=== PATIENT | male | born 1965 | race Caucasian/White ===

== ENCOUNTER 2024-11-02 13:13 | Outpatient (AMB) | payer OTHER, SELFPAY ==
--- NOTE | 2024-11-02 13:14 | MHC.PC.OV ---
Vital Signs 11/02/24 13:20 Height 5 ft 10.47 in Weight 180 lb 6 oz BMI 25.5 BP 128/80 Blood Pressure Location Rt brachial Position Sitting Respiration 14 Pulse 58 Pulse Source Pulse Oximeter Temp 98.4 F Temp Source Oral Pulse Oximetry (%) 97 Oxygen Delivery Method Room Air Intake Visit Reasons: Est. Care Intake Note: New patient visit Truck Sales Representative Required: No Allergies No Known Allergies Allergy (Verified 11/02/24 13:17) Tobacco use date assessed: 11/02/24 Dental Screening Did you have a dental visit in the last 12 months?: Yes Did you have a dental problem in the last 6 months where you did not have access to dental care?: No Was dental information given to patient?: Patient has dentist HPI HPI Comments History of Present Illness Details 59 year old male with a past medical history of GERD presenting to [facility]. Transferring from Dr Oscar at [facility]. Previously followed with Dr Gardner. Father had esophageal cancer. Is on PPI daily. Follows with Dr Cano in [place]. Trabeculectomy Colonoscopy ~2 years ago. +shingrix ROS CONSTITUTIONAL: Denies weight loss, fever and chills. HEENT: Denies changes in vision and hearing. RESPIRATORY: Denies SOB and cough. CV: Denies palpitations and CP GI: Denies abdominal pain, nausea, vomiting and diarrhea. : Denies dysuria and urinary frequency. MSK: Denies new myalgia and joint pain. SKIN: Denies rash and pruritus. NEUROLOGICAL: Denies headache PSYCHIATRIC: Denies recent changes in mood. PHYSICAL EXAM: GENERAL: Alert and oriented x 3. NAD EYES: EOMI. Anicteric. HENT: Moist mucous membranes. No scleral icterus. No cervical lymphadenopathy. LUNGS: Clear to auscultation bilaterally. CARDIOVASCULAR: Regular rate and rhythm. No murmur. No JVD. ABDOMEN: Soft, non-tender +bs EXTREMITIES: No edema. Non-tender. SKIN: No rashes or lesions. Warm. NEUROLOGIC: No focal neurological deficits. CN II-XII grossly intact PSYCHIATRIC: Cooperative. Appropriate mood and affect [facility] Social History Housing: House Patient Tobacco Use Status: Never used Tobacco e-Cigarette/Vaping Use: Never Used service: No Current occupational status: employed Current occupation: [employer] Current occupational exposures/hazards: No Cognitive needs: No Hearing needs: No Vision needs: Yes (eye surgery last year. ) Questionnaire PHQ-9 Over the last 2 weeks, how often have you been bothered by any of the following problems? 1. Little interest or pleasure in doing things: not at all 2. Feeling down, depressed, or hopeless: not at all 3. Trouble falling or staying asleep, or sleeping too much: not at all 4. Feeling tired or having little energy: not at all 5. Poor appetite or overeating: not at all 6. Feeling bad about yourself - or that you are a failure or have let yourself or your family down: not at all 7. Trouble concentrating on things, such as reading the newspaper or watching television: not at all 8. Moving or speaking so slowly that other people could have noticed. Or the opposite - being so fidgety or restless that you have been moving around a lot more than usual: not at all 9. Thoughts that you would be better off or of hurting yourself in some way: not at all Total score: 0 Depression Screening Interpretation: Negative Depression Screening Done: Yes 58429 - PHQ-9 Billing: Yes Source: Developed by Drs. Nick Pollack, Saida Loaiza, Bruno Ingram and colleagues, with an educational miki from [employer]. Thrive Questionnaire Date Thrive assessed: 10/26/24 I am a: Patient What is your living situation today?: I have a steady place to live Within the past 12 months, did the food you bought not last and you didn't have the money to get more?: Never true Within the past 12 months, did you worry whether your food would run out before you got money to buy more?: Never true Do you have trouble paying for medicines?: No Do you have trouble getting transportation to medical appointments?: No Do you have trouble paying your heating and electricity bill?: No Do you have trouble taking care of your child, family member or friend?: No Do you have trouble with day-to-day activities such as bathing, preparing meals, shopping, managing finances, etc.?: No Are you currently unemployed and looking for a job?: No Are you interested in more education?: Yes Please select the resources that you would like help with: None Currently or been in a relationship where the following occur: No concerns reported THRIVE Score: 0 AUDIT C Alcohol Use Questionnaire (AUDIT-C) 1. How often do you have a drink containing alcohol?: Never 3. How often do you have six or more drinks on one occasion?: Never Total Score: 0 ALEJANDRO-7 AMB Questionnaire ALEJANDRO-7 Feeling nervous, anxious, or on edge: 0 = Not at all Not being able to stop or control worryin = Not at all Worrying too much about different things: 0 = Not at all Trouble relaxin = Not at all Being so restless that it is hard to sit still: 0 = Not at all Becoming easily annoyed or irritable: 0 = Not at all Feeling afraid as if something awful might happen: 0 = Not at all Total ALEJANDRO-7 score (0-4 normal; 5-9 mild; 10-14 moderate; 15-21 severe): 0 Source: Developed by Drs. Nick Pollack, Saida Loaiza, Bruno Ingram and colleagues, with an educational miki from [employer]. Physical exam (Primary Care) PHQ-9: PHQ-9 Score PHQ-9: Total score 0 11/02/24 13:16 Depression Screening Interpretation: Negative Thrive Assessment: Date of Thrive Assessment Date Thrive assessed 10/26/24 11/02/24 13:16 Currently or been in a relationship where the following occur: No concerns reported Coding Level of Care Code New Pt Level 3 (41298) Complex EM visit Add On G2211 Diagnoses Encounter to establish care Z76.89 Gastroesophageal reflux disease, unspecified whether esophagitis present K21.9 Esophagitis presence: esophagitis presence not specified Additional Codes PHQ-9 - 85521 - PHQ-9 Billing: Yes ([id number]) Assessment & Plan Assessment & Plan (1) Encounter to establish care: Code(s): Z76.89 - Persons encountering health services in other specified circumstances (2) GERD (gastroesophageal reflux disease): Code(s): K21.9 - Gastro-esophageal reflux disease without esophagitis Category: Medical Qualifiers: Esophagitis presence: esophagitis presence not specified Qualified Code(s): K21.9 - Gastro-esophageal reflux disease without esophagitis Plan 59 year old male to establish care Past medical, surgical, social, family history reviewed GERD-stable on pantoprazole Preventive measures utd for age. Waiting on immunization status-records pending Orders: Orders Complete Blood Count Auto Diff Today R63.1 - Polydipsia, Z13.0 - Encounter for screening for diseases of the blood and blood-forming organs and certain disorders involving the immune mechanism, Z13.220 - Encounter for screening for lipoid disorders, Z13.228 - Encounter for screening for other metabolic disorders, Z80.0 - Family history of malignant neoplasm of digestive organs Lipid Panel Today R63.1 - Polydipsia, Z13.0 - Encounter for screening for diseases of the blood and blood-forming organs and certain disorders involving the immune mechanism, Z13.220 - Encounter for screening for lipoid disorders, Z13.228 - Encounter for screening for other metabolic disorders, Z80.0 - Family history of malignant neoplasm of digestive organs Prostate Specific Antigen Today R63.1 - Polydipsia, Z13.0 - Encounter for screening for diseases of the blood and blood-forming organs and certain disorders involving the immune mechanism, Z13.220 - Encounter for screening for lipoid disorders, Z13.228 - Encounter for screening for other metabolic disorders, Z80.0 - Family history of malignant neoplasm of digestive organs Hemoglobin A1c Today R63.1 - Polydipsia Comprehensive Met. Panel Today R63.1 - Polydipsia, Z13.0 - Encounter for screening for diseases of the blood and blood-forming organs and certain disorders involving the immune mechanism, Z13.220 - Encounter for screening for lipoid disorders, Z13.228 - Encounter for screening for other metabolic disorders, Z80.0 - Family history of malignant neoplasm of digestive organs
[2024-11-02 13:20] VITALS: BP 128/80; PULSE 58; RESP 14; TEMP 36.9; O2SAT 97; BMI 25.5
--- OUTSIDE RECORDS SUMMARY | 2024-11-02 14:37 | XMS_ITS | Clinical Summary ---
Author Organization [facility] Address [address] [place] [address] Care Team Providers Care Home Care Associate Name Role Phone Unavailable Primary Care Provider Unavailabl e Immunizations Immunization Administration Dates Next Due DTP TD Preservative Free 07/20/2010, Tdap Social History Tobacco Use Types Packs/Day Years Used Date Smoking Tobacco: Never Assessed Sex and Gender Information Value Date Recorded Sex Assigned at Not on file Legal Sex Male 2:39 PM EDT Gender Identity Not on file Sexual Orientation Not on file Last Filed Vital Signs Vital Sign Reading Time Taken Comments Blood Pressure 114/88 10/21/2011 4:30 PM EDT Pulse 72 10/21/2011 4:30 PM EDT Temperature 36.3 C (97.3 F) 12/07/2010 9:02 AM EDT Respiratory Rate - - Oxygen Saturation - - Inhaled Oxygen Concentration - - Weight - - Height - - Body Mass Index - - Plan of Treatment Health Maintenance Due Date Last Done Comments Hepatitis C Virus Screening 1965 HIV Screening 1978 Hepatitis B Vaccines (1 of 3 - 19+ 3-dose series) 1984 DTaP/Tdap/Td Vaccines (1 - Tdap) 07/21/2010 07/20/2010, , , Additional history exists Pneumococcal Vaccines 50+ (1 of 1 - PCV) 08/07/2015 Zoster (Shingles) Vaccine (1 of 2) 08/07/2015 COVID-19 Vaccine ( - 2023-2 5 season) 2023
--- OUTSIDE RECORDS SUMMARY | 2024-11-02 14:37 | XMS_ITS | Clinical Summary ---
Author Organization [facility] Address [address] [place] [address] Phone Care Team Providers Care Director Of Education Name Role Phone Paulina Oscar MD Primary Care Provider [phone] Allergies Active Allergy Reactions Criticality Noted Date Comments Justicia Adhatoda 06/19/2023 Milk-Related Compounds 07/03/2017 Intolerance to dairy Peanut (Diagnostic) 12/10/2023 Tilactase 06/19/2023 Tomato 06/19/2023 Medications cetirizine (ZyrTEC) 10 MG tablet Take 10 mg by mouth in the morning. Active cholecalciferol (VITAMIN D-3) 25 MCG (1000 UT) capsule Take by mouth 8 Active dorzolamide (TRUSOPT) 2 % ophthalmic solution Administer 1 drop into affected eye(s) 3 Active dorzolamide-hazel olol (COSOPT) 2-0.5 % ophthalmic solution Administer 1 drop into affected eye(s) in the morning and 1 drop in the evening. 4 Active latanoprost (XALATAN) 0.005 % ophthalmic solution 1 drop Active Netarsudil-Maria noprost (Rocklatan) 0.02-0.005 % solution See Instructions, 0 Refills, Maintenance, 06/05/23 7:49:00 EST, Partial fill upon patient request if the prescription is for a schedule II opioid drug. 4 Active pantoprazole (PROTONIX) 40 MG EC tablet Take 40 mg by mouth 1 (one) time each day 4 Active olopatadine (PATANOL) 0.1 % ophthalmic solution Administer 1 drop into affected eye(s) 2 (two) times a day if needed Active ofloxacin (OCUFLOX) 0.3 % ophthalmic solution Administer 1 drop into affected eye(s) in the morning and 1 drop at noon and 1 drop in the evening. Active brimonidine (ALPHAGAN) 0.2 % ophthalmic solution PLACE 1 DROP INTO EACH EYE 3 TIMES A DAY. 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/2023 Overview (12/10/2023): H63D heterozygosity dx'ed 09/2014 Caregiver role strain 12/10/2023 Bereavement 12/10/2023 Allergy to walnut 12/10/2023 Allergic rhinitis 12/10/2023 Adverse reaction to food 12/10/2023 Gastroesophageal reflux disease 05/22/2016 Immunizations Immunization Administration Dates Next Due Influenza Whole 01/25/2019 Pfizer SARS-COV-2 04/24/2022,04/24/2021,09/06/19,08/15/2020 Shingrix 03/19/2023 TD Preservative Free 07/20/2010 Tdap 04/24/2022 Social History Tobacco Use Types Packs/Day Years Used Date Smoking Tobacco: Never Assessed Sex and Gender Information Value Date Recorded Sex Assigned at Not on file Legal Sex Male 11:36 AM EDT Gender Identity Not on file Sexual Orientation Not on file Last Filed Vital Signs Vital Sign Reading Time Taken Comments Blood Pressure 100/64 12/10/2023 11:41 AM EDT Pulse 60 12/10/2023 11:41 AM EDT Temperature - - Respiratory Rate - - Oxygen Saturation - - Inhaled Oxygen Concentration - - Weight 87.5 kg (193 lb) 12/10/2023 11:41 AM EDT Height - - Body Mass Index - - Plan of Treatment Health Maintenance Due Date Last Done Comments Hepatitis B Vaccine (1 of 3 - 19+ 3-dose series) 08/06 Pneumococcal Vaccine: 50+ Years (1 of 2 - PCV) 985 Colorectal Cancer Screening: Annual FOBT 2014 Colorectal Cancer Screening: Colonoscopy 2014 Colorectal Cancer Screening: Sigmoidoscopy 2014 Influenza Vaccine (#1) 2024 01/25/2019 Insurance [facility] Care Teams Director Of Education Relationship Specialty Start Date End Date Paulina Oscar MD [address] [place] [id number] (Work) PCP - General Internal Medicine 07/21/23
== END 2024-11-02 13:52 | disposition home or self-care (01) ==
LOC: HO.HMCFM 13:13
PROVIDERS: PCP Internal Medicine; Visit Provider Internal Medicine
DX: Z76.89 Persons encountering health services in other specified circumstances (principal); K21.9 Gastro-esophageal reflux disease without esophagitis

== ENCOUNTER → 2024-11-02 13:13 | Outpatient (BNVA) | payer OTHER, SELFPAY | PROVIDERS: PCP Internal Medicine; Visit Provider Internal Medicine | DX: Z76.89 Persons encountering health services in other specified circumstances (principal); K21.9 Gastro-esophageal reflux disease without esophagitis; Z13.31 Encounter for screening for depression | CPT/HCPCS: 96127 ==

== ENCOUNTER 2024-11-02 13:54 | Outpatient (REF) | payer OTHER, SELFPAY ==
[2024-11-02 17:58] LABS: MANUAL DIFF FLAG NO
[2024-11-02 18:03] LABS: Hematocrit 43.6 % (42.0-52.0); Hemoglobin 14.5 g/dl (14.0-18.0); Imm Gran Abs Auto 0.01 X10*3/uL (0.00-0.03); Imm Gran Pct Auto 0.2 % (0.0-0.4); Lymphocytes Absolute Auto 1.8 X10*3/uL (1.2-4.9); Mean Corpuscular HGB Conc 33.3 g/dl (31.0-36.0); Mean Corpuscular Hemoglobin 30.3 pg (27.0-33.0); Mean Corpuscular Volume 91.0 fL (80.0-98.0); NRBC Abs Auto 0.000 X10*3/uL (0.0-0.012); NRBC Pct Auto 0.0 /100WBC (0.0-0.2); Platelet Count 158 X10*3/uL (160-400); Red Blood Count 4.79 X10*6/uL (4.60-5.80); White Blood Count 4.1 X10*3/uL (4.8-10.8)
[2024-11-02 18:15] LABS: Alanine Aminotransferase 25 U/L (0-40); Albumin Level 4.2 g/dL (3.5-5.0); Alkaline Phosphatase 94 U/L (39-117); Anion Gap 11 (12-20); Aspartate Amino Transferase 33 U/L (5-37); Blood Urea Nitrogen 5 mg/dL (9-16); Calcium 8.7 mg/dL (8.4-10.2); Carbon Dioxide 28 mmol/L (22-29); Chloride 107 mmol/L (96-108); Cholesterol 126 mg/dL (<200); Estimated Glomerular Filt Rate > 60; HDL Cholesterol 40 mg/dL (>40); Potassium 4.1 mmol/L (3.3-5.1); Sodium 142 mmol/L (135-145); Total Protein 6.3 g/dL (6.5-8.0); Triglycerides 77 mg/dL (<150)
[2024-11-02 18:17] LABS: Hemoglobin A1C 135.2409 umol/L; Total Hemoglobin (HGBA1C) 3822.7765 umol/L
[2024-11-02 18:34] LABS: Prostate Specific Antigen 0.40 ng/mL (<0.05-4.0)
== END 2024-11-02 13:55 | disposition home or self-care (01) ==
LOC: HO.WFDLDS 13:54
PROVIDERS: Visit Provider Internal Medicine
DX: Z12.5 Encounter for screening for malignant neoplasm of prostate (principal); Z80.0 Family history of malignant neoplasm of digestive organs; Z13.228 Encounter for screening for other metabolic disorders; Z13.220 Encounter for screening for lipoid disorders; Z13.0 Encounter for screening for diseases of the blood and blood-forming organs and certain disorders involving the immune mechanism; R63.1 Polydipsia
CPT/HCPCS: 36415; 80053; 80061; 83036; 84153; 85025

== ENCOUNTER 2025-02-07 14:57 | Outpatient (AMB) | payer OTHER, SELFPAY ==
--- NOTE | 2025-02-07 15:07 | MHC.PC.OV ---
Vital Signs 02/07/25 15:15 Height 5 ft 10.47 in Weight 190 lb 4 oz BMI 26.9 BP 118/71 Blood Pressure Location Rt brachial Position Sitting Respiration 16 Pulse 59 Pulse Source Pulse Oximeter Temp 97.9 F Temp Source Oral Pulse Oximetry (%) 100 Oxygen Delivery Method Room Air Intake Visit Reasons: High blood pressure over the weekend Intake Note: patient here c/o having high blood pressure over the weekend Privacy Officer Required: No Allergies No Known Allergies Allergy (Verified 02/07/25 15:26) Medication List - Last Reconciled 02/07/25 by Tammy Garzon CNP brimonidine 0.2% 1 drp ophthalmic (eye) BID dorzolamide-timolol 22.3-6.8 mg/mL 1 drp ophthalmic (eye) BID latanoprost 0.005% 1 drp ophthalmic (eye) DAILY pantoprazole 40 mg PO DAILY Tobacco use date assessed: 02/07/25 Dental Screening Dental Screen Date: 02/07/25 Did you have a dental visit in the last 12 months?: No Did you have a dental problem in the last 6 months where you did not have access to dental care?: No Was dental information given to patient?: Patient has dentist HPI HPI Comments History of Present Illness Details 59-year-old male presents with complaints of elevated blood pressure readings over the past weekend. He reports work-related stressors. On , he felt unwell with heartburn and tightness to the middle of his chest. He checked his blood pressure while in a reclined position and he was 150/80s, but his systolic blood pressure improves to 120s. He denied associated headache, visual disturbances, or dizziness. He notes that he was eating salty foods, including chips, but started making healthy dietary choices over the weekend. He walks regularly during work. No acute symptoms at this time. He usually follows Dr. Doty. [facility] Social History Housing: House Patient Tobacco Use Status: Never used Tobacco e-Cigarette/Vaping Use: Never Used service: No Current occupational status: employed Current occupation: [employer] Current occupational exposures/hazards: No Cognitive needs: No Hearing needs: No Vision needs: Yes (eye surgery last year. ) Questionnaire Thrive Questionnaire Date Thrive assessed: 10/26/24 I am a: Patient What is your living situation today?: I have a steady place to live Within the past 12 months, did the food you bought not last and you didn't have the money to get more?: Never true Within the past 12 months, did you worry whether your food would run out before you got money to buy more?: Never true Do you have trouble paying for medicines?: No Do you have trouble getting transportation to medical appointments?: No Do you have trouble paying your heating and electricity bill?: No Do you have trouble taking care of your child, family member or friend?: No Do you have trouble with day-to-day activities such as bathing, preparing meals, shopping, managing finances, etc.?: No Are you currently unemployed and looking for a job?: No Are you interested in more education?: Yes Please select the resources that you would like help with: None Currently or been in a relationship where the following occur: No concerns reported THRIVE Score: 0 Review of Systems Const Details: Const Denies chills, Denies fatigue, Denies fever(s), Denies headache(s) and Denies weakness ENT Denies dizziness and Denies headache(s) Card Denies chest pain, Denies lightheadedness, Denies dyspnea and Denies other (Palpitations) Resp Denies cough, Denies dyspnea, Denies wheezing and Denies other ( shortness of breath) GI Denies abdominal pain, Denies melena, Denies hematochezia, Denies change in bowel habits, Denies dyspepsia and Denies nausea Denies hematuria and Denies dysuria Musc Denies abnormal gait, Denies myalgias, Denies arthralgias, Denies numbness and Denies tingling Skin/Breast Denies rash, Denies unusual bruising and Denies wounds Neuro Denies abnormal gait, Denies dizziness, Denies headache(s), Denies memory loss, Denies numbness, Denies Sensory deficit (Neuro), Denies tingling and Denies weakness Psych Denies anxiety, Denies depression, Denies memory loss Endo Denies cold intolerance, Denies fatigue, Denies heat intolerance, Denies polydipsia and Denies polyuria Aller/Immun Denies wheezing Physical exam (Primary Care) Vital Signs: Last Vital Signs Temp 97.9 F 02/07/25 15:15 Pulse 59 02/07/25 15:15 Resp 16 02/07/25 15:15 BP 118/71 02/07/25 15:15 Pulse Ox 100 02/07/25 15:15 Oxygen Delivery Method Room Air 02/07/25 15:15 BMI result Body Mass Index 26.9 Tobacco/Smoking Status: Tobacco use Status Tobacco use date assessed 02/07/25 02/07/25 15:15 Patient Tobacco Use Status Never used Tobacco 02/07/25 15:15 e-Cigarette/Vaping Use Never Used 02/07/25 15:15 Thrive Assessment: Date of Thrive Assessment Date Thrive assessed 10/26/24 02/07/25 15:15 Currently or been in a relationship where the following occur: No concerns reported Const Other: General: no acute distress and well developed Nutritional Appearance: well nourished Orientation/consciousness: patient oriented x3 HENMT Head: Yes normocephalic and Yes atraumatic Eyes General: appearance normal, both eyes and all related structures Pupils: Equal, round and reactive pupils present EOM: EOMs intact bilaterally Resp Effort & Inspection: normal respiratory effort Auscultation: clear to auscultation bilaterally Cardio Rate: regular rate Rhythm: regular rhythm Heart sounds: S1 normal heart sound present, S2 normal heart sound present, no gallops, no murmurs and no rubs GI Palpation (GI): No Abdominal aortic bruit present, Soft to palpation, nontender, No hepatosplenomegaly present and No Rebound tenderness present Auscultation: normal bowel sounds General: Yes no CVA tenderness Back/Spine/Pelvis Back: no CVA tenderness Cervical Spine: cervical ROM normal and No Cervical spine tenderness Thoracic/Lumbar Spine: thoraco-lumbar ROM normal, No pain with thoraco-lumbar ROM, No thoracic spinal tenderness and No lumbar spinal tenderness Extrem General: Yes normal to inspection, No edema and No calf tenderness Skin General: warm and dry. Normal skin color. Normal skin turgor Neuro General: patient oriented x3, gait normal and no focal neuro deficit Cranial nerves: Yes Equal, round and reactive pupils present Cognition (Neuro): normal cognition Gait exam (Neuro): Normal gait present Sensory Exam: No Sensory deficit (Neuro) Psych Appearance: grossly normal Affect: normal affect Attitude: cooperative Thought process: Normal thought process present Coding Level of Care Code Est Pt Level 3 (88197) Diagnoses Elevated blood pressure reading R03.0 Assessment & Plan Assessment & Plan (1) Elevated blood pressure reading: Code(s): R03.0 - Elevated blood-pressure reading, without diagnosis of hypertension Category: Medical Plan: Blood pressure is 118/71. Low-sodium diet and routine exercise encouraged. Follow-up with PCP. Verbalized understanding and agreed with the plan.
[2025-02-07 15:15] VITALS: BP 118/71; PULSE 59; RESP 16; TEMP 36.6; O2SAT 100; BMI 26.9
--- OUTSIDE RECORDS SUMMARY | 2025-02-07 19:10 | XMS_ITS | Encounter Summary ---
Author Organization [facility] Address [address] [place] [phone] Phone Care Team Providers Care Associate Engineer Name Role Phone Paulina Oscar MD Primary Care Provide r Encounter Details Date Type Department Care Team (Late st Contact Info) Description 08/05/2023 Procedure Pass [facility] PERIOP DEPT [address] [place] [address] Social History Tobacco Use Types Packs/Day Years Used Date Smoking Tobacco: Never Smokeless Tobacco: Never Alcohol Use Standard Drinks/Week Comments Never 0 (1 standard drink = 0.6 oz pur e alcohol) Education Answer Date Recorded Are you interested in more education? Not on lesley e 05/30/2023 Are you concerned about learning? Not on file 05/30/2023 No 05/30/2023 No 05/30/2023 Digital Access Answer Date Recorded No 05/30/2023 No 05/30/2023 Reliable internet access at home? Not on file 05/30/2023 Device with a working camera? Not on file Intimate Partner Violence Answer Date R ecorded Are you denied basic needs s uch as food, clothing, or medical care? No 08/05/2023 In the past 12 months have y ou been in a relationship with a person who hurts, threatens, or tries to control you? No 08/05/2023 Are you denied basic needs s uch as food, clothing, or medical care? No 08/05/2023 In the past 12 months have y ou been in a relationship with a person who hurts, threatens, or tries to control you? No 08/05/2023 Sex and Gender Information Value Date Recorded Sex Assigned at Not on file Legal Sex Male 12:10 PM EST Gender Identity Not on file Sexual Orientation Not on file documented as of this encounter Plan of Treatment Not on file documented as of this encounter Visit Diagnoses Not on filedocumented in this encounter Care Teams Associate Engineer Relationship Specialty Start Date End Date Paulina Oscar MD [address] [address] PCP - General Internal Medicine 06/19/23 documented as of this encounter Additional Source Comments The information contained in this document represents components of the legal health record. It is not the complete legal health record.[facility]
--- OUTSIDE RECORDS SUMMARY | 2025-02-07 19:10 | XMS_ITS | Clinical Summary ---
Author Organization [facility] Address [address] [place] [address] Care Team Providers Care Mica Spreader Name Role Phone Unavailable Primary Care Provider [...] COVID-19 Vaccine ( - 2023-2 5 season) 2024 RSV Vaccine 50 years and old er and Patients (1 - 1-dose 75+ series) 2040
--- OUTSIDE RECORDS SUMMARY | 2025-02-07 19:10 | XMS_ITS | Encounter Summary ---
Author Organization [facility] Address [address] [place] [address] Phone Care Team Providers Care Aluminum Pool Installer Name Role Phone Pcp, Not Required Primary Care Provider Paulina Adams MD Primary Care Provide r Encounter Details Date Type Department Care Team ([facility] st Contact Info) Description 05/30/2023 Ophth Exam [facility] [place] [address] [place] [address] Petr Mandel MD [address] [place] [address] [email or web address] Social History Tobacco Use Types Packs/Day Years [...] with a working camera? Not on file Sex and Gender Information Value Date Recorded Sex Assigned at Not on file Legal Sex Male 12:10 PM EST Gender Identity Not on file Sexual Orientation Not on file documented as of this encounter Functional Status * Calculated C-SSRS Risk Score (Lifetime/Recent) Answer Date of Assessment Author No Risk Indicated 05/30/2023 12:42 PM Olivia Alaniz RN * Mousie Suicide Severity Rating Scale (Screener/Recent Self-Report) Question Answer Date of Assessment Author 1. Wish to be (Past 1 Month) No 024 12:42 PM Olivia Alaniz RN 2. Non-Specific Active Suici shahrzad Thoughts (Past 1 Month) No 05/30/2023 12:42 PM Terry Alaniz RN 6. Suicidal Behavior (Lifetime) No 4 12:42 PM Olivia Alaniz RN documented as of this encounter Plan of Treatment Not on file documented as of this encounter Visit Diagnoses Not on filedocumented in this encounter Care Teams Aluminum Pool Installer Relationship Specialty Start Date End Date Pcp, Not Required [address] [place] [address] PCP - General 05/30/23 06/18/23 Paulina Oscar MD [address] [address] PCP - General Internal Medicine 06/19/23 documented as of this encounter Additional Source Comments The information contained in this document represents components of the legal health record. It is not the complete legal health record.[facility]
--- OUTSIDE RECORDS SUMMARY | 2025-02-07 19:10 | XMS_ITS | Encounter Summary ---
Author Organization [facility] Address [address] [place] [address] Phone Care Team Providers Care Legal Support Manager Name Role Phone Paulina Oscar MD Primary Care Provide r Encounter Details Date Type Department Care Team ([facility] st Contact Info) Description 06/25/2023 Procedure Pass MARIANGEL LW PERIOP DEPT [address] [place] [address] Social History Tobacco Use Types Packs/Day Years [...] on filedocumented in this encounter Care Teams Legal Support Manager Relationship Specialty Start Date End Date Paulina Oscar MD [address] [address] PCP - General Internal Medicine 06/19/23 documented as of this encounter Additional Source Comments The information contained in this document represents components of the legal health record. It is not the complete legal health record.[facility]
--- OUTSIDE RECORDS SUMMARY | 2025-02-07 19:10 | XMS_ITS | Clinical Summary ---
Author Organization [facility] Address [address] [place], [place] [id number] Phone Care Team Providers Care Caustic Plant Worker Name Role Phone Paulina Oscar MD Primary Care Provide r Allergies Active Allergy Reactions Criticality Noted Date Comments Lactase 06/19/2023 Milk Containing Products (Dairy) 07/03/2017 Intolerance to dairy Tomato 06/19/2023 Tree Nut 06/19/2023 Medications brimonidine (LUMIFY) 0.025 % opthalmic solution Apply 1 drop to eye. 3 Active dorzolamide (TRUSOPT) 2 % ophthalmic solution Apply 1 drop to eye. 3 Active pantoprazole (PROTONIX) 40 MG tablet Take 1 tablet by mouth daily. 2 Active cholecalciferol , vitamin D3, 25 mcg (1,000 unit) capsule Take 1,000 Units by mouth daily. Active cyanocobalamin, vitamin B-12, 1000 MCG tablet Take 1,000 mcg by mouth daily. 3 days a week Active cetirizine (ZYRTEC) 10 MG tablet Take 10 mg by mouth daily. Active ofloxacin (OCUFLOX) 0.3 % ophthalmic solutionIndicat ions:Primary open angle glaucoma of right eye, severe stage Place 1 drop into the right eye 3 (three) times a day. 5 mL 1 4 Active olopatadine (PATANOL) 0.1 % ophthalmic solution Place 1 drop into the left eye 2 (two) times a day as needed. Active prednisoLONE acetate (PRED FORTE) 1 % ophthalmic suspensionIndic ations:Primary open angle glaucoma of right eye, severe stage Place 2 drops into the right eye daily. 10 mL 1 4 Active Additional Information Patient not taking.Reported on 08/28/2023 brimonidine (ALPHAGAN) 0.2 % ophthalmic solution Place 1 drop into the left eye 2 (two) times a day. 10 mL 12 5 Active dorzolamide-hazel oloL (COSOPT) 22.3-6.8 mg/mL ophthalmic solution Place 1 drop into the left eye 2 (two) times a day. 10 mL 12 5 Active latanoprost (XALATAN) 0.005 % ophthalmic solution Place 1 drop into the left eye nightly at bedtime. 2.5 mL 12 5 Active Encounters Date Type Department Care Team Description 02/03/[address] [place] [address] Geoffrey Schmid from Last 3 Months Social History Tobacco Use Types Packs/Day Years Used Date Smoking Tobacco: Never Smokeless Tobacco: Never Tobacco Cessation:Counseling Given: Not Answered Alcohol Use Standard Drinks/Week Comments Never 0 [...] ecorded Are you denied basic needs [facility] as food, clothing, or medical care? No 08/05/2023 In the past 12 months have y ou been in a relationship with a person who hurts, threatens, or tries to control you? No 08/05/2023 Are you denied basic needs [facility] as food, clothing, or medical care? No [...] Sign Reading Time Taken Comments Blood Pressure 139/96 08/05/2023 2:30 PM EDT Pulse 82 08/05/2023 2:30 PM EDT Temperature 36.4 C (97.6 F) 08/05/2023 2:11 PM EDT Respiratory Rate 17 08/05/2023 2:11 PM EDT Oxygen Saturation 98% 08/05/2023 2:11 PM EDT Inhaled Oxygen Concentration - - Weight 81.6 kg (180 lb) 08/05/2023 12:47 PM EDT Height 180.3 cm (5' 10.98 ) 08/05/2023 12:47 PM EDT Body Mass Index 25.12 08/05/2023 12:47 PM EDT Plan of Treatment Health Maintenance Due Date Last Done Comments LIPID PANEL 1965 DEPRESSION SCREENING 1977 HEPATITIS C SCREENING 08/07/1983 HIV ONE-TIME SCREENING (18-6 5 YEARS) 08/07/1983 SCREENING FOR DIABETES 2000 COLOGUARD 2010 COLONOSCOPY 2010 COLORECTAL CANCER SCREENING 2010 FIT TEST 2010 FOBT 2010 SIGMOIDOSCOPY 2010 VIRTUAL COLONOSCOPY 2010 PNEUMOCOCCAL VACCINES (50+ years) (1 of 1 - PCV) 08/07/2015 ZOSTER VACCINES (1 of 2) 08/07/2015 INFLUENZA VACCINE (#1) 2024 COVID-19 VACCINE ( - 2024-2 6 season) 2024 Adult Td,Tdap Booster 04/24/2032 04/24/2022 , RSV VACCINE (1 - 1-dose 75+ series) 2040 SMOKING STATUS SCREENING (On ce After 26 Yrs) Completed 08/28/2023 HEPATITIS A VACCINES Aged Out No long er eligible based on patient's age to complete this topic HIB VACCINES Aged Out No longer eligi ble based on patient's age to complete this topic MENINGOCOCCAL VACCINES (ACWY) Aged Out No longer eligible based on patient's age to complete this topic MENINGOCOCCAL VACCINES (B) Aged Out N o longer eligible based on patient's age to complete this topic Medical Devices Not on [place] [phone] PLAN [facility] CARE [place] [address] [place] [address] CARE PLAN ADIEL DOMINGUEZ [id number] Advance Directives For more information, please contact: [phone] (9AM - 5PM [place], Friday-Friday) Documents on File Type Date Recorded Patient Tree Farmer Expl anation Healthcare Proxy 06/27/2023 10:02 AM Care Teams Caustic Plant Worker Relationship Specialty Start Date End Date Paulina Oscar MD [address] [address] PCP - General Internal Medicine 06/19/23 Additional Source Comments The information contained in this document represents components of the legal health record. It is not the complete legal health record.[facility]
--- OUTSIDE RECORDS SUMMARY | 2025-02-07 19:10 | XMS_ITS | Encounter Summary ---
Author Organization [facility] Address [address] [place] [address] [place] [address] Phone Care Team Providers Care Recruitment Officer Name Role Phone Paulina Oscar MD Primary Care Provide r Encounter Details Date Type Department Care Team (Late st Contact Info) Description 02/03/[address] [address] Geoffrey [email or web address] Social History Tobacco Use Types Packs/Day Years [...] on filedocumented in this encounter Care Teams Recruitment Officer Relationship Specialty Start Date End Date Paulina Oscar MD [address] [address] PCP - General Internal Medicine 06/19/23 documented as of this encounter Additional Source Comments The information contained in this document represents components of the legal health record. It is not the complete legal health record.[facility]
--- OUTSIDE RECORDS SUMMARY | 2025-02-07 19:10 | XMS_ITS | Clinical Summary ---
Author Organization [facility] Address [address] [place] [place] [address] Phone Care Team Providers Care Enrollment Nurse Name Role Phone Paulina Oscar MD Primary Care Provider [phone] Allergies Active Allergy Reactions Criticality Noted Date [...] [facility] Care Teams Enrollment Nurse Relationship Specialty Start Date End Date Paulina Oscar MD [address] [place] [phone] (Work) PCP - General Internal Medicine 07/21/23
== END 2025-02-07 15:36 | disposition home or self-care (01) ==
LOC: HO.HMCFM 14:58
PROVIDERS: PCP Internal Medicine; Visit Provider Nurse Practitioner Family
DX: R03.0 Elevated blood-pressure reading, without diagnosis of hypertension (principal)

== ENCOUNTER 2025-03-11 14:00 | Outpatient (AMB) | payer OTHER, SELFPAY ==
--- NOTE | 2025-03-11 14:14 | MHC.PC.OV ---
Vital Signs 03/11/25 14:16 Height 5 ft 10.47 in Weight 192 lb 8 oz BMI 27.3 BP 108/66 Blood Pressure Location Lt brachial Position Sitting Respiration 14 Pulse 79 Pulse Source Pulse Oximeter Temp 97.9 F Temp Source Oral Pulse Oximetry (%) 100 Oxygen Delivery Method Room Air Intake Visit Reasons: BP Intake Note: Blood pressure follow. Public Speaking Instructor Required: No Allergies No Known Allergies Allergy (Verified 03/11/25 14:15) Tobacco use date assessed: 03/11/25 Dental Screening Dental Screen Date: 02/07/25 HPI HPI Comments History of Present Illness Details 59 year old male with a past medical history of GERD presenting for follow up Previously followed with Dr Gardner. Father had esophageal cancer. Is on PPI daily. Recent heartburn, reflux Seen recently by colleague He had an episodes of He reports work-related stressors. On , he felt unwell with heartburn and tightness to the middle of his chest. He checked his blood pressure while in a reclined position and he was 150/80s, but his systolic blood pressure improves to 120s. He denied associated headache, visual disturbances, or dizziness. He notes that he was eating salty foods, including chips, but started making healthy dietary choices over the weekend. He walks regularly during work. He has not had any interval episodes. Blood pressure has been good. He is having daytime fatigue and thinks he has been snoring. He was supposed to have sleep testing in the past Follows with Dr Cano in [place]. Trabeculectomy Colonoscopy ~2 years ago. +shingrix ROS CONSTITUTIONAL: Denies weight loss, fever and chills. HEENT: Denies changes in vision and hearing. RESPIRATORY: Denies SOB and cough. CV: Denies palpitations and CP GI: Denies abdominal pain, nausea, vomiting and diarrhea. : Denies dysuria and urinary frequency. MSK: Denies new myalgia and joint pain. SKIN: Denies rash and pruritus. NEUROLOGICAL: Denies headache PSYCHIATRIC: Denies recent changes in mood. PHYSICAL EXAM: GENERAL: Alert and oriented x 3. NAD EYES: EOMI. Anicteric. HENT: Moist mucous membranes. No scleral icterus. No cervical lymphadenopathy. LUNGS: Clear to auscultation bilaterally. CARDIOVASCULAR: Regular rate and rhythm. No JVD. ABDOMEN: Soft, non-tender +bs EXTREMITIES: No edema. Non-tender. SKIN: No rashes or lesions. Warm. NEUROLOGIC: No focal neurological deficits. CN II-XII grossly intact PSYCHIATRIC: Cooperative. Appropriate mood and affect [facility] Social History Housing: House Patient Tobacco Use Status: Never used Tobacco e-Cigarette/Vaping Use: Never Used service: No Current occupational status: employed Current occupation: [employer] Current occupational exposures/hazards: No Cognitive needs: No Hearing needs: No Vision needs: Yes (eye surgery last year. ) Questionnaire Thrive Questionnaire Date Thrive assessed: 10/26/24 I am a: Patient What is your living situation today?: I have a steady place to live Within the past 12 months, did the food you bought not last and you didn't have the money to get more?: Never true Within the past 12 months, did you worry whether your food would run out before you got money to buy more?: Never true Do you have trouble paying for medicines?: No Do you have trouble getting transportation to medical appointments?: No Do you have trouble paying your heating and electricity bill?: No Do you have trouble taking care of your child, family member or friend?: No Do you have trouble with day-to-day activities such as bathing, preparing meals, shopping, managing finances, etc.?: No Are you currently unemployed and looking for a job?: No Are you interested in more education?: Yes Please select the resources that you would like help with: None Currently or been in a relationship where the following occur: No concerns reported THRIVE Score: 0 AUDIT C Alcohol Use Questionnaire (AUDIT-C) 1. How often do you have a drink containing alcohol?: Never 3. How often do you have six or more drinks on one occasion?: Never Total Score: 0 Physical exam (Primary Care) Vital Signs: Last Vital Signs Temp 97.9 F 03/11/25 14:16 Pulse 79 03/11/25 14:16 Resp 14 03/11/25 14:16 BP 108/66 03/11/25 14:16 Pulse Ox 100 03/11/25 14:16 Oxygen Delivery Method Room Air 03/11/25 14:16 BMI result Body Mass Index 27.3 Tobacco/Smoking Status: Tobacco use Status Tobacco use date assessed 03/11/25 03/11/25 14:19 Patient Tobacco Use Status Never used Tobacco 03/11/25 14:19 e-Cigarette/Vaping Use Never Used 03/11/25 14:19 Thrive Assessment: Date of Thrive Assessment Date Thrive assessed 10/26/24 03/11/25 14:19 Currently or been in a relationship where the following occur: No concerns reported Coding Level of Care Code Complex visit Add On G2211 Diagnoses Gastroesophageal reflux disease, unspecified whether esophagitis present K21.9 Esophagitis presence: esophagitis presence not specified Daytime somnolence R40.0 Assessment & Plan Assessment & Plan (1) GERD (gastroesophageal reflux disease): Code(s): K21.9 - Gastro-esophageal reflux disease without esophagitis Category: Medical Qualifiers: Esophagitis presence: esophagitis presence not specified Qualified Code(s): K21.9 - Gastro-esophageal reflux disease without esophagitis (2) Daytime somnolence: Code(s): R40.0 - Somnolence Category: Medical Plan 59 year old presenting for follow up No interval chest pain. Recent episode more likely GI related. EKG normal Daytime fatigue, snoring -sleep study ordered Orders: Orders AMB EKG-In Office 03/11/25 K21.9 - Gastro-esophageal reflux disease without esophagitis, R07.9 - Chest pain, unspecified RT home sleep study 03/11/25 R06.83 - Snoring, R40.0 - Somnolence Complete Blood Count Auto Diff 03/11/25 D72.818 - Other decreased white blood cell count Pathologist Review - CBC 03/11/25 D72.818 - Other decreased white blood cell count
[2025-03-11 14:16] VITALS: BP 108/66; PULSE 79; RESP 14; TEMP 36.6; O2SAT 100; BMI 27.3
--- OUTSIDE RECORDS SUMMARY | 2025-03-11 14:25 | XMS_ITS | Encounter Summary ---
Author Organization [facility] Address [address] [place] [address] [place] [address] Phone Care Team Providers Care Gas Cutting Machine Operator Name Role Phone Paulina Oscar MD Primary Care Provide r Encounter Details Date Type Department Care Team (Late st Contact Info) Description 02/03/[address] [address] Geoffrey [email or web address] Social History Tobacco Use Types Packs/Day Years [...] as of this encounter Plan of Treatment Upcoming Encounters Date Type Department Care Team (Late st Contact Info) Description 08/18/2025 1:30 PM EDT Appointment [facility] [place] [address] [address] Edinson Cano MD [address] [place] [phone] [email or web address] 08/18/2025 2:00 PM EDT Office Visit [address] [address] Edinson Cano MD [address] [place] [address] [email or web address] documented as of this encounter Visit Diagnoses Not on filedocumented in this encounter Care Teams Gas Cutting Machine Operator Relationship Specialty Start Date End Date Paulina Oscar MD [address] [place] [address] PCP - General Internal Medicine 06/19/23 documented as of this encounter Additional Source Comments The information contained in this document represents components of the legal health record. It is not the complete legal health record.[facility]
--- OUTSIDE RECORDS SUMMARY | 2025-03-11 14:25 | XMS_ITS | Encounter Summary ---
Author Organization [facility] Address [address] [place] [address] [place] [address] Phone Care Team Providers Care Process Chemist Name Role Phone Paulina Oscar MD Primary Care Provide r Encounter Details Date Type Department Care Team (Late st Contact Info) Description 02/10/[address] [address] Geoffrey [email or web address] Social History Tobacco Use Types Packs/Day Years [...] on file documented as of this encounter Progress Notes * Geoffrey Schmid - 02/10/2025 9:53 AM EDT called and lvm to schedule appointment for february with documented in this encounter Plan of Treatment Upcoming Encounters Date Type Department Care Team (Late st Contact Info) Description 08/18/2025 1:30 PM EDT Appointment [facility] [place] [address] [address] Edinson Cano MD [address] [place] [address] [email or web address] 08/18/2025 2:00 PM EDT Office Visit [facility] [address] [address] Edinsno Cano MD [address] [place] [address] [email or web address] documented as of this encounter Visit Diagnoses Not on filedocumented in this encounter Care Teams Process Chemist Relationship Specialty Start Date End Date Paulina Oscar MD [address] [place] [address] PCP - General Internal Medicine 06/19/23 documented as of this encounter Additional Source Comments The information contained in this document represents components of the legal health record. It is not the complete legal health record.[facility]
--- OUTSIDE RECORDS SUMMARY | 2025-03-11 14:25 | XMS_ITS | Encounter Summary ---
Author Organization [facility] Address [address] [place] [address] Phone Care Team Providers Care Sheet Metal Journeyman Name Role Phone Paulina Oscar MD Primary Care Provide r Encounter Details Date Type Department Care Team (Late st Contact Info) Description 06/25/2023 Procedure Pass MARIANGEL LW PERIOP DEPT [address] [place] [address] Social History Tobacco Use Types Packs/Day Years [...] Info) Description 08/18/2025 1:30 PM EDT Appointment [facility] [address] [facility] 1st [place] [address] Edinson Cano MD [address] [place] [address] [email or web address] 08/18/2025 2:00 PM EDT Office Visit [facility] [address] [place] [address] Edinson Cano MD [address] [place] [address] [email or web address] documented as of this encounter Visit Diagnoses Not on filedocumented in this encounter Care Teams Sheet Metal Journeyman Relationship Specialty Start Date End Date Paulina Oscar MD [address] [address] PCP - General Internal Medicine 06/19/23 documented as of this encounter Additional Source Comments The information contained in this document represents components of the legal health record. It is not the complete legal health record.[facility]
--- OUTSIDE RECORDS SUMMARY | 2025-03-11 14:25 | XMS_ITS | Encounter Summary ---
Author Organization [facility] Address [address] [place] [address] Care Team Providers Care Lathe Tender Name Role Phone Paulina Oscar MD Primary Care Provider [phone] Encounter Details Date Type Department Care Team (Late st Contact Info) Description 11/24/2024 Lab Requisition [facility] - Main Lab [address] [facility] [place] [address] Feliz Marroquin MD [address] [facility] [address] [place] [phone] Benign prostatic hyperplasia without lower urinary tract symptoms Social History Tobacco Use Types Packs/Day Years Used Date Smoking Tobacco: Never Smokeless Tobacco: Never Alcohol Use Standard Drinks/Week Comments No 0 (1 standard drink = 0.6 oz pur e alcohol) Sex and Gender Information Value Date Recorded Sex Assigned at Not on file Legal Sex Male 5:30 AM EST Gender Identity Not on file Sexual Orientation Not on file documented as of this encounter Plan of Treatment Not on file documented as of this encounter Procedures Procedure Name Priority Date/Time Associated Diagnosis Comments PROSTATE SPECIFIC ANTIGEN DIAGNOSTIC Routine 11/24/2024 10:58 AM EDT Benign prostatic hyperplasia without lower urinary tract symptoms documented in this encounter Results * Prostate specific antigen diagnostic (11/24/2024 10:58 AM EDT) PSA 0.47 0.00 - 4.00 ng/mL LAB CHEMISTRY METHOD 11/24/2024 3:06 PM EDT [facility] Blood Venous blood specimen / Unknown 11/24/2024 10:58 AM EDT 11/24/2024 1:35 PM EDT Narrative [facility] ([facility] - 11/24/2024 3:06 PM EDT The Siemens Advia Centaur Chemiluminescent Immunoassay is used. Results obtained with different assay methods or kits cannot be used interchangeably. Results cannot be interpreted as absolute evidence of the presence or absence of malignant disease. us Feliz Marroquin MD LAB BLOOD ORDERABLES Final Resul t [facility] [address] [place] [address], documented in this encounter Visit Diagnoses Diagnosis Benign prostatic hyperplasia without lower urinary tract symptoms documented in this encounter Care Teams Lathe Tender Relationship Specialty Start Date End Date Paulina Oscar MD PCP - General Internal Medicine 05/07/16 documented as of this encounter
--- OUTSIDE RECORDS SUMMARY | 2025-03-11 14:25 | XMS_ITS | Clinical Summary ---
Author Organization [facility] Address [address] [place] [place] [address] Phone Care Team Providers Care Lining Mechanic Name Role Phone Paulina Oscar MD Primary Care Provider Allergies Active Allergy Reactions Criticality Noted Date [...] 2014 Influenza Vaccine (#1) 2024 01/25/2019 Insurance [facility] Care Teams Lining Mechanic Relationship Specialty Start Date End Date Paulina Oscar MD [address] [place] [phone] (Work) PCP - General Internal Medicine 07/21/23
--- OUTSIDE RECORDS SUMMARY | 2025-03-11 14:25 | XMS_ITS | Clinical Summary ---
Author Organization [facility] Address [address] [place] [address] Care Team Providers Care Sub Master Name Role Phone Unavailable Primary Care Provider [...]
--- OUTSIDE RECORDS SUMMARY | 2025-03-11 14:25 | XMS_ITS | Clinical Summary ---
Author Organization [facility] Address [address] [place] [phone] Phone Care Team Providers Care Watch Assembly Instructor Name Role Phone Paulina Osacr MD Primary Care Provide r Allergies Active Allergy Reactions Criticality Noted Date Comments Lactase 06/19/2023 Milk Containing Products (Dairy) 07/03/2017 Intolerance to dairy Tomato 06/19/2023 Tree Nut 06/19/2023 Medications pantoprazole (PROTONIX) 40 MG tablet Take 1 tablet by mouth daily. 2 Active cholecalcifero l, vitamin D3, 25 mcg (1,000 unit) capsule Take 1,000 Units by mouth daily. Active cyanocobalamin , vitamin B-12, 1000 MCG tablet Take 1,000 mcg by mouth daily. 3 days a week Active cetirizine (ZYRTEC) 10 MG tablet Take 10 mg by mouth daily. Active brimonidine (ALPHAGAN) 0.2 % ophthalmic solution Place 1 drop into the left eye 2 (two) times a day. 10 mL 12 5 Active dorzolamide-ti moloL (COSOPT) 22.3-6.8 mg/mL ophthalmic solution Place 1 drop into the left eye 2 (two) times a day. 10 mL 12 5 Active latanoprost (XALATAN) 0.005 % ophthalmic solution Place 1 drop into the left eye nightly at bedtime. 2.5 mL 12 5 Active brimonidine (LUMIFY) 0.025 % opthalmic solution Apply 1 drop to eye. 3 10/30/20 25 Discontinued dorzolamide (TRUSOPT) 2 % ophthalmic solution Apply 1 drop to eye. 3 02/18/20 25 Discontinued ofloxacin (OCUFLOX) 0.3 % ophthalmic solutionIndica tions:Primary open angle glaucoma of right eye, severe stage Place 1 drop into the right eye 3 (three) times a day. 5 mL 1 4 02/18/20 25 Discontinued olopatadine (PATANOL) 0.1 % ophthalmic solution Place 1 drop into the left eye 2 (two) times a day as needed. 02/18/20 25 Discontinued prednisoLONE acetate (PRED FORTE) 1 % ophthalmic suspensionIndi cations:Primar y open angle glaucoma of right eye, severe stage Place 2 drops into the right eye daily. 10 mL 1 4 02/18/20 25 Discontinued Encounters Date Type Department Care Team Description 02/17/2025 2:00 PM EDT Office Visit [facility] Glaucoma [address] [address] Edinson Cano MD Primary open angle glaucoma of right eye, severe stage (Primary Dx); Age-related nuclear cataract, bilateral 02/17/2025 1:30 PM EDT Procedure visit [facility] Glaucoma [address] [address] Edinson Cano MD Primary open angle glaucoma of right eye, severe stage (Primary Dx) 02/14/2025 Telephone [facility] Glaucoma [address] [address] Edinson Cano MD 02/10/2025 Telephone [facility] Glaucoma [address] [address] Geoffrey Schmid 02/03/2025 Telephone [facility] Glaucoma [address] [address] Geoffrey Schmid from Last 3 Months Social [...] 08/05/2023 12:47 PM EDT Plan of Treatment Upcoming Encounters Date Type Department Care Team (Late st Contact Info) Description 08/18/2025 1:30 PM EDT Appointment [facility] [address] [place] [address] Edinson Cano MD [address] [place] [phone] [email or web address] 08/18/2025 2:00 PM EDT Office Visit [facility] [address] 1[address] [place] [address] Edinson Cano MD [address] [place] [address] [email or web address] Health Maintenance Due Date Last Done Comments [...] 08/07/2015 INFLUENZA VACCINE (#1) 2024 COVID-19 VACCINE (1 - 2024-2 6 season) 2024 Adult Td,Tdap [...] this topic Medical Devices Not on file Procedures Procedure Name Priority Date/Time Associated Diagnosis Comments OCT, OPTIC NERVE - OU - BOTH EYES Routine 02/17/2025 1:14 PM EDT Primary open angle glaucoma of right eye, severe stage from Last 3 Months Results * OCT, Optic Nerve - OU - Both Eyes - (02/17/2025 1:14 PM EDT) Irene GUSTAFSON - 02/17/2025 2:56 PM EDT Right Eye Quality: Good. Change: Stable. Optic Disk: Large. Optic nerve head and nerve fiber layer: Abnormal superior, Abnormal inferior. Ganglion cell or retinal thickness: Abnormal. Left Eye Quality: Good. Change: Stable. Optic Disk: Large. Optic nerve head and nerve fiber layer: Abnormal inferior. Ganglion cell or retinal thickness: Abnormal. General Details Testing performed by: [employer] Comments: couldn't get quality greater than a 5 for RNFL OD, attempted numerous times hazy view. us Edinson Cano MD OPHTHALMOLOGY IMAGING Final Result JANAY from Last 3 Months Insurance [employer]I[employer] [id number] [facility] [employer] [id number] [place] [address] [facility] [place] [phone] [place] [address] PLAN [facility] PLAN [place], [place] [phone] [place] [address] PLAN Advance Directives For more information, please contact: [phone] (9AM - 5PM [facility], Friday-Friday) Documents on File Type Date Recorded 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 It is not the complete legal health record.[facility]
--- OUTSIDE RECORDS SUMMARY | 2025-03-11 14:25 | XMS_ITS | Encounter Summary ---
Author Organization [facility] Address [address] [place] [address] Phone Care Team Providers Care Tobacco Warehouse Manager Name Role Phone Pcp, Not Required Primary Care Provider Paulina Adams MD Primary Care Provide r Encounter Details Date Type Department Care Team ([facility] st Contact Info) Description 05/30/2023 Ophth Exam [facility] [address] [place] [address] Petr Mandel MD [address] [place] [phone] [email or web address] Social History Tobacco Use Types Packs/Day [...] 05/30/2023 12:42 PM Olivia Alaniz RN * [place] Suicide Severity Rating Scale (Screener/Recent Self-Report) Question Answer Date of Assessment Author 1. Wish to be (Past 1 Month) No 024 12:42 PM Olivia Alaniz RN 2. Non-Specific Active Suici shahrzad Thoughts (Past 1 Month) No 05/30/2023 12:42 PM Terry Alaniz RN 6. Suicidal Behavior (Lifetime) No 12:42 PM Olivia Alaniz RN documented as of this encounter Plan of Treatment Upcoming Encounters Date Type Department Care Team (Late st Contact Info) Description 08/18/2025 1:30 PM EDT Appointment [address] [address] Edinson Cano MD [address] [place] [phone] [email or web address] 08/18/2025 2:00 PM EDT Office Visit [address] [address] Edinson Cano MD [address] [place] [phone] [email or web address] documented as of this encounter Visit Diagnoses Not on filedocumented in this encounter Care Teams Tobacco Warehouse Manager Relationship Specialty Start Date End Date Pcp, Not Required [address] [place] [address] PCP - General 05/30/23 06/18/23 Paulina Oscar MD [address] [place] [phone] PCP - General Internal Medicine 06/19/23 documented as of this encounter Additional Source Comments The information contained in this document represents components of the legal health record. It is not the complete legal health record.[facility]
--- OUTSIDE RECORDS SUMMARY | 2025-03-11 14:25 | XMS_ITS | Clinical Summary ---
Author Organization [address] Address [address] [place] [phone] Phone Care Team Providers Care Hot Roll Inspector Name Role Phone Paulina Oscar MD Primary Care Provider Surgical History Surgery Date Site/Laterality Comments OTHER SURGICAL HISTORY PROCEDURE: HI NEUROPLASTY &/TRANSPOSITION ULNAR NERVE ELBOW COLONOSCOPY 11/21/2015 PROCEDURE: HISTORICAL COLONOSCOPY; COMMENT: normal OTHER SURGICAL HISTORY 2009 PROCEDURE: HI STAB PHLEBT VARICOSE VEINS 1 XTR 10-20 STAB INCS; COMMENT: laser vein ligation UPPER GASTROINTESTINAL ENDOSCOPY 07/09/2011 PROCEDURE: HI UPPER GI ENDOSCOPY PERFORMED; COMMENT: negative Medical History Medical History Date Comments Chronic GERD DX:Chronic GERD; COMMENT: history of esophagitis Glaucoma DX:Glaucoma Family History Medical History Relation Name Comments Esophageal cancer Father Relation Name Status Comments Father Social History Tobacco Use Types Packs/Day Years Used Date Smoking Tobacco: Never Smokeless Tobacco: Never Alcohol Use Standard Drinks/Week Comments No 0 (1 standard drink = 0.6 oz pur e alcohol) Sex and Gender Information Value Date Recorded Sex Assigned at Not on file Legal Sex Male 5:30 AM EST Gender Identity Not on file Sexual Orientation Not on file Obstetrics History Plan of Treatment Health Maintenance Due Date Last Done Comments Colorectal Cancer Screening: Colonoscopy 1965 DTaP,Tdap,and Td Vaccines (1 - Tdap) 1984 Hepatitis B Vaccines (1 of 3 - 19+ 3-dose series) 1984 Pneumococcal Vaccine: 50+ Ye ars (1 of 1 - PCV) 08/07/2015 Zoster Vaccines (1 of 2) 08/07/2015 Depression Screening 04/21/2024 Cholesterol Screening (Lipid Panel) 11/24/2024 HIV Screening 11/24/2024 Hepatitis C Screening 11/24/2024 Social Influencers of Health Screening 11/24/2024 COVID-19 Vaccine (1 - 2024-2 6 season) 2024 Influenza Vaccine (#1) 2024 RSV Immunization Adult Patie nts (1 - 1-dose 75+ series) 2040 HIB Vaccines Aged Out No longer eligi ble based on patient's age to complete this topic HPV Vaccines Aged Out No longer eligi ble based on patient's age to complete this topic Hepatitis A Vaccines Aged Out No long er eligible based on patient's age to complete this topic IPV Vaccines Aged Out No longer eligi ble based on patient's age to complete this topic MMR Vaccines Aged Out No longer eligi ble based on patient's age to complete this topic Meningococcal ACWY Vaccine Aged Out N o longer eligible based on patient's age to complete this topic Meningococcal B Vaccine Aged Out No l onger eligible based on patient's age to complete this topic RSV Immunization Patients Un kenia 20 months Aged Out No longer eligible b ased on patient's age to complete this topic Varicella Vaccines Aged Out No longer eligible based on patient's age to complete this topic Insurance [facility] Care Teams Hot Roll Inspector Relationship Specialty Start Date End Date Paulina Oscar MD PCP - General Internal Medicine 05/07/16
--- OUTSIDE RECORDS SUMMARY | 2025-03-11 14:25 | XMS_ITS | Encounter Summary ---
Author Organization [facility] Address [address] [place] [phone] Phone Care Team Providers Care Manager Printing Name Role Phone Paulina Oscar MD Primary Care Provide r Encounter Details Date Type Department Care Team (Late st Contact Info) Description 08/05/2023 Procedure Pass [facility] DEPT [address] [place] [address] Social History Tobacco Use Types Packs/Day Years [...] Info) Description 08/18/2025 1:30 PM EDT Appointment [facility] [address] [address] Edinson Cano MD [address] [place] [phone] [email or web address] 08/18/2025 2:00 PM EDT Office Visit [facility] [address] [address] Edinson Cano MD [address] [place] [phone] [email or web address] documented as of this encounter Visit Diagnoses Not on filedocumented in this encounter Care Teams Manager Printing Relationship Specialty Start Date End Date Paulina Oscar MD [address] [phone] PCP - General Internal Medicine 06/19/23 documented as of this encounter Additional Source Comments The information contained in this document represents components of the legal health record. It is not the complete legal health record.[facility]
== END 2025-03-11 14:55 | disposition home or self-care (01) ==
LOC: HO.HMCFM 14:01
PROVIDERS: PCP Internal Medicine; Visit Provider Internal Medicine
DX: K21.9 Gastro-esophageal reflux disease without esophagitis (principal); R40.0 Somnolence; R06.83 Snoring